=== PATIENT | female | born 1955 | race Caucasian/White ===

== ENCOUNTER → 2023-10-06 14:06 | Outpatient (REF) | payer OTHER, SELFPAY | LOC: PAVMRI 14:06 | PROVIDERS: ATTENDING PHYSICIAN Physician Assistant Surgical; FAMILY PHYSICIAN Family Medicine | DX: M54.2 Cervicalgia (principal); M25.551 Pain in right hip | CPT/HCPCS: 72141; 73721 ==

== ENCOUNTER → 2023-11-10 09:08 | Outpatient (REF) | payer OTHER, SELFPAY | LOC: HWRAD 09:08 | PROVIDERS: ATTENDING PHYSICIAN Internal Medicine Rheumatology; FAMILY PHYSICIAN Family Medicine | DX: M46.1 Sacroiliitis, not elsewhere classified (principal); M47.816 Spondylosis without myelopathy or radiculopathy, lumbar region | CPT/HCPCS: 72202 ==

== ENCOUNTER → 2023-12-02 12:12 | Outpatient (REF) | payer OTHER, SELFPAY | LOC: HWRAD 12:12 | PROVIDERS: ATTENDING PHYSICIAN Internal Medicine Cardiovascular Disease; FAMILY PHYSICIAN Family Medicine | DX: I10 Essential (primary) hypertension (principal); R06.09 Other forms of dyspnea | CPT/HCPCS: 71046 ==

== ENCOUNTER → 2023-12-15 07:41 | Outpatient (REF) | payer OTHER, SELFPAY | LOC: EMG 07:41 | PROVIDERS: ATTENDING PHYSICIAN Physician Assistant Surgical; FAMILY PHYSICIAN Family Medicine | DX: R20.0 Anesthesia of skin (principal) | CPT/HCPCS: 95886; 95911 ==

== ENCOUNTER → 2023-12-19 08:02 | Outpatient (REF) | payer OTHER, SELFPAY | LOC: HWRCS 08:02 | PROVIDERS: ATTENDING PHYSICIAN Internal Medicine Cardiovascular Disease; FAMILY PHYSICIAN Family Medicine | DX: I10 Essential (primary) hypertension (principal); R06.09 Other forms of dyspnea | CPT/HCPCS: 93306 ==

== ENCOUNTER → 2023-12-22 07:30 | Outpatient (REF) | payer OTHER, SELFPAY | LOC: DHCBC/DCA 07:30 | PROVIDERS: ATTENDING PHYSICIAN Internal Medicine Cardiovascular Disease; FAMILY PHYSICIAN Family Medicine | DX: I10 Essential (primary) hypertension (principal); R06.09 Other forms of dyspnea | CPT/HCPCS: 78452; 93017; A9500; J2785 ==

== ENCOUNTER → 2024-04-12 10:53 | Outpatient (REF) | payer OTHER, SELFPAY | LOC: HWWDC 10:53 | PROVIDERS: ATTENDING PHYSICIAN Obstetrics & Gynecology; FAMILY PHYSICIAN Family Medicine | DX: Z12.31 Encounter for screening mammogram for malignant neoplasm of breast (principal) | CPT/HCPCS: 77063; 77067 ==

== ENCOUNTER → 2024-05-18 06:59 | Outpatient (REF) | payer OTHER, SELFPAY | LOC: MRI 3T 06:59 | PROVIDERS: ATTENDING PHYSICIAN Physician Assistant; FAMILY PHYSICIAN Family Medicine | DX: M54.16 Radiculopathy, lumbar region (principal) | CPT/HCPCS: 72148 ==

== ENCOUNTER → 2025-01-21 07:23 | Outpatient (REF) | payer OTHER, SELFPAY | LOC: HWRAD 07:23 | PROVIDERS: ATTENDING PHYSICIAN Family Medicine | DX: R10.84 Generalized abdominal pain (principal) | CPT/HCPCS: 76700 ==

== ENCOUNTER → 2025-04-15 10:36 | Outpatient (REF) | payer OTHER, SELFPAY | LOC: HWWDC 10:36 | PROVIDERS: ATTENDING PHYSICIAN Obstetrics & Gynecology; FAMILY PHYSICIAN Family Medicine | DX: Z12.31 Encounter for screening mammogram for malignant neoplasm of breast (principal) | CPT/HCPCS: 77063; 77067 ==

== ENCOUNTER 2025-05-08 11:06 | Emergency (ER) | payer OTHER, SELFPAY ==
[2025-05-08 11:10] VITALS: BP 122/84
[2025-05-08 12:24] LABS: Hematocrit 40.6 % (37.0-47.0); Hemoglobin 13.7 g/dL (12.0-16.0); Mean Corp Hgb Conc. 33.7 g/dL (33.0-37.0); Mean Corpuscular Volume 87.5 fL (81.0-99.0); Nucleated Red Blood Cells % 0 %; Red Cell Dist. Width 13.4 % (11.5-14.5)
--- NOTE | 2025-05-08 12:29 | ED.GENMED ---
History of Present Illness
General
Chief Complaint: Abdominal Pain
Source: patient
Exam Limitations: none
Time Seen by Provider: 05/08/25 12:05
Nursing documentation reviewed up to this point in time: agreed with
History of Present Illness
History of Present Illness:
69-year-old female with past medical history of cholecystectomy, biliary duct stone presents to the ER for evaluation. She has had off-and-on abdominal discomfort since December for the past several months. Over this past weekend symptoms worsened.
She feels that pain starts in her upper abdomen and then spreads all over. It is worse after eating. She has been intermittently nauseous. She has tried Bentyl and acid none of which relieves her symptoms. She has not reflux does not feeling
this is reflux. She had a lot of diarrhea and because of abdominal discomfort presented to the ER. She did see her family doctor for this in December and she had an outpatient abdominal ultrasound in January. She does report that this showed a minimally
enlarged common bile duct. I am able to image the ultrasound report which shows a common bile duct of 7.7 mm mild intrahepatic and extrahepatic biliary dilatation. She has an upcoming appointment with her GI specialist here [place] next month.
Past History
Past History
ED Past Medical History: HTN and Other (migraines / IBS)
ED Past Surgical History: Cholecystectomy
Social History
Tobacco: Non-smoker
Personal:
Living: with family
Phy Exam
General Physical Exam
General Presentation: no apparent distress
General age: appears stated age
General Skin: warm and dry
General Habitus: normal
General Mental: alert
Gastrointestinal Exam
Gastrointestinal Exam: soft and other (Nonspecific abdominal tenderness)
Neurological Exam
Neurological Exam: alert and oriented x3
Musculoskeletal Exam
Musculoskeletal Exam: full ROM
Skin Exam
Skin Exam: normal color and warm/dry
Psychiatric Exam
Psychiatric Exam: normal mood/affect
Course
Orders/Labs/Results
Orders:
Orders
05/08/25 12:01
Complete Blood Count/With Diff Urgent
05/08/25 12:45
IV Insert/Care/Rem.- Treatment PRN
0.9% Sodium Chloride 1000 ml [Nss] 1,000 ml IV BOLUS
Ketorolac [Toradol] 15 mg IV NOW STA
Ondansetron Injectable [Zofran] 4 mg IV NOW STA
05/08/25 12:46
CT Abd/Pel (IV only)-DH only Urgent
Comment:
Reason For Exam: abd pain throughout
05/08/25 12:56
Comprehensive Metabolic Panel Urgent
Lipase Urgent
05/08/25 15:31
Urinalysis Reflex To Culture Urgent
Date Specimen was Collected: 05/08/25
Time Specimen was Collected: 14:44
05/08/25 16:18
Dicyclomine HCl [Bentyl] 20 mg IM NOW STA
Abnormal Lab Results
05/08/25 05/08/25 05/08/25
12:01 12:56 15:31
Lymphocytes % 18.3 L %
(20.5-51.1)
BUN 22 H mg/dl
(7-17)
Calcium 10.5 H mg/dl
(8.4-10.2)
AST 41 H U/L
(14-36)
Urine Ketones 1+ A
(Negative)
05/08/25 12:01
05/08/25 12:56
Vital Signs
Initial and Last Documented VS:
Initial Vital Signs
Temp Pulse Resp BP Pulse Ox
98.5 F 61 16 122/84 97
05/08/25 11:10 05/08/25 11:10 05/08/25 11:10 05/08/25 11:10 05/08/25 11:10
Last Documented Vital Signs
Temp Pulse Resp BP Pulse Ox
98.5 F 61 16 133/71 92
05/08/25 11:10 05/08/25 15:31 05/08/25 15:31 05/08/25 15:31 05/08/25 15:31
Spanish Linguist consulted with Physician
Spanish Linguist consulted with physician?: Yes
Name of Physician Consulted: Alex
MDM/Problems Addressed
Differential Diagnosis Includes:
Not limited to viral syndrome, colitis, diverticulitis
MDM/Problems Addressed:
As documented patient is a 69-year-old female who has had abdominal pain since December intermittent in nature. Had outpatient ultrasound ordered by PCP in January which showed mild intrahepatic and extrahepatic biliary dilatation she did have previous
cholecystectomy in the past. She presented today with abdominal pain similar as previous intermittent episodes and had 1 episode of diarrhea this morning. CAT scan shows colitis of the transverse descending and sigmoid colon no fever normal white
count normal LFTs will hold off on antibiotic and have closely follow-up with GI. Case discussed with ER physician. Will give a new script for marquez (hers is old) ,
I did speak with GI Dr. Contreras who does recommend also getting a stool culture however patient has not been able to do in the ER will give the patient outpatient prescription.
Chronic conditions affecting care:
chronic abd pain since december
*Radiology
Radiology exam reviewed: radiology read reviewed
*Pulse Oximetry
SaO2: 97
Oxygen Mode of Delivery: Room air
Patient hypoxic: no
*Critical Care Note
Total Time (30-74mins, 75-104mins- exclusive of procedures): Not Applicable
Data Reviewed
Review of Other/Old Records Reveals: Radiology Studies
Source: patient
Patient Management
Discussion with other providers: Precipitator (DR Contreras [facility] )
ED Attending Note
-
Portions of this chart may have been created with voice recognition software.� Occasional wrong word or��sound alike� substitutions may have occurred due to the inherent limitations of voice recognition software.
Discharge Plan
Departure
Patient Disposition: Home (Routine Discharge)
Date of Disposition: 05/08/25
Time of Disposition: 16:27
Patient with high blood pressure during this ER visit?: Yes
Condition: Fair
Covid-19: Not Applicable
Discharge Problem:
Colitis, Abdominal pain
Instructions: Colitis (DC), Abdominal Pain, BLOOD PRESSURE
Prescriptions:
New
dicyclomine 20 mg tablet
20 mg PO QID PRN (Reason: stomach cramps) Qty: 10 0RF
No Action
famotidine 20 MG tablet
20 mg PO DAILY
cannabidiol [Epidiolex] 1 UNIT solution
0.5 dropperett inhalation BIDPRN PRN (Reason: anxiety)
Patient Comments:
patient uses tinture and goes to restore in [facility] [phone]
atenolol 25 MG tablet
25 mg PO DAILY
magnesium oxide 500 MG tablet
500 mg PO DAILY
fluoxetine 20 MG capsule
40 mg PO DAILY
psyllium husk [Metamucil] 0.4 GM capsule
0.8 gm PO QPM
Keto Diet Pills
2 tab PO DAILY
Referrals:
Omayra Walker MD [Active, Gastroenterology]
Bertha Antony DO [Family Provider, Family Practice]
Activity Restrictions/Additional Instructions:
As discussed you may take Bentyl as needed this medication was sent to your pharmacy. You are also given a lab slip for stool culture if you continue to have diarrhea please take to the nearest lab. Patient received phone call from GI regarding
your follow-up appointment. [place] diet. Return to the ER for any worsening of symptoms of increased pain worsening diarrhea fever chills or any further concerns.
Interventions
Interventions:
*Risk Screen - Suicide Last Done: 05/08/25 11:10
*General Assessment Last Done: 05/08/25 11:10
*Neglect/Abuse Screening Last Done: 05/08/25 11:10
*ED- Fall Risk Assessment Last Done: 05/08/25 11:10
*ED COVID-19 Vaccine History Last Done: 05/08/25 11:10
ZL-Pzutxz-Dsolqzmzjb Assessment Last Done: 05/08/25 12:45
Discharge Date and Time
Print Language: SAO TOMEAN
[2025-05-08] MEDS: ZOFRAN 4 MG IV (13:00)
[2025-05-08] MEDS: TORADOL 15 MG IV (13:00)
[2025-05-08] MEDS: NSS 1000 IV (13:04)
[2025-05-08 13:35] LABS: ALT (SGPT) 31 U/L (0-35); AST (SGOT) 41 U/L (14-36); Albumin 4.3 g/dl (3.5-5.0); Alkaline Phosphatase 68 U/L (38-126); Blood Urea Nitrogen 22 mg/dl (7-17); Calcium 10.5 mg/dl (8.4-10.2); Carbon Dioxide 28 mmol/L (22-30); Chloride 106 mmol/L (98-107); Glucose 91 mg/dl (70-99); Lipase 42 U/L (23-300); Potassium 3.8 mmol/L (3.5-5.1); Sodium 140 mmol/L (135-145); Total Protein 7.5 g/dl (6.3-8.2); eGFR > 60.00
[2025-05-08 15:31] VITALS: BP 133/71
[2025-05-08 15:53] LABS: Urine Character Clear (Clear)
[2025-05-08] MEDS: BENTYL 20 MG IM (16:37)
== END 2025-05-08 16:47 | disposition home or self-care (01) ==
LOC: EMR 11:06
PROVIDERS: Emergency Medicine; Nurse Practitioner; EMERGENCY PHYSICIAN Emergency Medicine; FAMILY PHYSICIAN Family Medicine
DX: K52.9 Noninfective gastroenteritis and colitis, unspecified (principal); K83.8 Other specified diseases of biliary tract; I10 Essential (primary) hypertension
CPT/HCPCS: 99284; 96374; 96375; 96361; 96372; 74177; 80053; 81003; 83690; 85025; Q9967

== ENCOUNTER → 2025-05-22 14:29 | Outpatient (REF) | payer OTHER, SELFPAY | LOC: DHSLP 14:29 | PROVIDERS: ATTENDING PHYSICIAN Internal Medicine; FAMILY PHYSICIAN Family Medicine | DX: G47.33 Obstructive sleep apnea (adult) (pediatric) (principal) | CPT/HCPCS: 95800 ==

== ENCOUNTER 2025-05-29 06:22 | Day surgery (SDC) | payer OTHER, SELFPAY | END 2025-05-29 12:17 | disposition home or self-care (01) | LOC: GI 06:22 | PROVIDERS: ATTENDING PHYSICIAN Internal Medicine Gastroenterology | DX: K52.9 Noninfective gastroenteritis and colitis, unspecified (principal); R10.84 Generalized abdominal pain; K64.9 Unspecified hemorrhoids; R13.10 Dysphagia, unspecified; K22.2 Esophageal obstruction; K44.9 Diaphragmatic hernia without obstruction or gangrene; K31.89 Other diseases of stomach and duodenum; D12.2 Benign neoplasm of ascending colon | CPT/HCPCS: 45385; 45380; 43239; 88305; 88342 ==

== ENCOUNTER 2025-05-30 06:18 | Day surgery (SDC) | payer OTHER, SELFPAY | END 2025-05-30 13:03 | disposition home or self-care (01) | LOC: GI 06:18 | PROVIDERS: ATTENDING PHYSICIAN Internal Medicine Gastroenterology | DX: K52.9 Noninfective gastroenteritis and colitis, unspecified (principal); R19.4 Change in bowel habit; K64.8 Other hemorrhoids; K63.89 Other specified diseases of intestine; Q43.8 Other specified congenital malformations of intestine; K63.3 Ulcer of intestine | CPT/HCPCS: 45378 ==

== ENCOUNTER → 2025-07-08 10:32 | Outpatient (REF) | payer OTHER, SELFPAY | LOC: HWRAD 10:32 | DX: J18.9 Pneumonia, unspecified organism (principal) | CPT/HCPCS: 71046 ==

== ENCOUNTER → 2025-07-17 12:45 | Outpatient (REF) | payer OTHER, SELFPAY | LOC: RAD 12:45 | DX: R09.89 Other specified symptoms and signs involving the circulatory and respiratory systems (principal); R06.09 Other forms of dyspnea; R05.3 Chronic cough | CPT/HCPCS: 71250 ==